=== PATIENT | female | born 1945 | race Caucasian/White ===

== ENCOUNTER 2018-05-23 00:07 | Outpatient (CLI) | payer MEDICARE, SELFPAY ==
--- NOTE | 2018-05-23 13:14 | DI.MAMMO_ITS ---
SYMPTOM/DIAGNOSIS: SCREENING, Z12.31 MAMMOGRAMS: Mammograms were interpreted according to the usual protocol including computer analysis with CAD system, tomosynthesis and C view imaging. Comparison is made with prior examinations. Breast density, Category B. No masses or microcalcifications are seen. There is nothing to suggest malignancy. IMPRESSION: Negative mammogram. Routine screening is recommended. Category 1. MQSA ASSESSMENT OF FINDINGS: Negative. Category 1. Patient will receive a letter notifying them of these results. BI-RADS category B. There are scattered areas of fibroglandular density.
== END 2018-05-23 00:27 ==
PROVIDERS: Visit Provider Family Medicine
DX: Z12.31 Encounter for screening mammogram for malignant neoplasm of breast (principal)
CPT/HCPCS: 77063; 77067

== ENCOUNTER 2018-06-28 02:06 | Outpatient (CLI) | payer MEDICARE, SELFPAY ==
[2018-06-28 11:28] LABS: ALT 30 U/L (12-78); AST 23 U/L (15-37); Albumin 3.9 g/dL (3.4-5.0); Alkaline Phosphatase 69 U/L (46-116); BUN 12 mg/dL (7-18); Bilirubin, Total 0.5 mg/dL (0.2-1.0); CREATININE 0.72 mg/dL (0.55-1.02); Calcium 9.6 mg/dL (8.5-10.1); Chloride 102 mmol/L (98-107); Cholesterol 200 mg/dL (50-200); Glucose 103 mg/dL (70-100); HDL Cholesterol 66 mg/dL (40-60); LDL CHOLESTEROL 116 mg/dL (<100); Potassium 4.5 mmol/L (3.5-5.1); Sodium 140 mmol/L (136-145); Total Protein 6.7 g/dL (6.4-8.2); Triglyceride 50 mg/dL (30-150)
== END 2018-06-28 02:26 ==
DX: E78.5 Hyperlipidemia, unspecified (principal); M19.90 Unspecified osteoarthritis, unspecified site
CPT/HCPCS: 36415; 80053; 80061; 83721

== ENCOUNTER 2020-05-20 10:08 | Outpatient (CLI) | payer MEDICARE, SELFPAY ==
[2020-05-20 12:58] LABS: ALT 42 U/L (14-59); AST 31 U/L (15-37); Albumin 4.5 g/dL (3.4-5.0); Alkaline Phosphatase 74 U/L (46-116); BUN 14 mg/dL (7-18); Bilirubin, Total 0.6 mg/dL (0.2-1.0); CREATININE 0.79 mg/dL (0.55-1.02); Calcium 9.4 mg/dL (8.5-10.1); Calculated LDL 122 mg/dL (<100); Chloride 101 mmol/L (98-107); Cholesterol 205 mg/dL (<200); Glucose 104 mg/dL (74-106); HDL Cholesterol 74 mg/dL (40-60); Potassium 3.9 mmol/L (3.5-5.1); Sodium 139 mmol/L (136-145); TSH (W/Ref FT4) 2.17 uIU/mL (0.36-3.74); Total Protein 7.5 g/dL (6.4-8.2); Triglyceride 48 mg/dL (<150)
== END 2020-05-20 10:28 ==
DX: G47.00 Insomnia, unspecified (principal); L65.9 Nonscarring hair loss, unspecified; E78.5 Hyperlipidemia, unspecified; R03.0 Elevated blood-pressure reading, without diagnosis of hypertension; I10 Essential (primary) hypertension; R68.89 Other general symptoms and signs
CPT/HCPCS: 36415; 80053; 80061; 84443

== ENCOUNTER 2021-05-14 04:22 | Outpatient (CLI) | payer MEDICARE, SELFPAY ==
[2021-05-14 13:03] LABS: ALT 32 U/L (14-59); AST 22 U/L (15-37); Albumin 4.1 g/dL (3.4-5.0); Alkaline Phosphatase 73 U/L (46-116); Anion Gap 3.9 mmol/L (3-11); BUN 17 mg/dL (7-18); Bilirubin, Total 0.4 mg/dL (0.2-1.0); CO2 32.1 mmol/L (21.0-32.0); CREATININE 0.6 mg/dL (0.55-1.02); Calcium 9.7 mg/dL (8.5-10.1); Calculated LDL 107 mg/dL (<100); Chloride 101 mmol/L (98-107); Cholesterol 185 mg/dL (<200); Glucose 107 mg/dL (74-106); HDL Cholesterol 68 mg/dL (40-60); Potassium 5.5 mmol/L (3.5-5.1); Sodium 137 mmol/L (136-145); Total Protein 6.8 g/dL (6.4-8.2); Triglyceride 52 mg/dL (<150)
== END 2021-05-14 04:23 | disposition home or self-care (01) ==
LOC: LOS 04:23
DX: I10 Essential (primary) hypertension (principal); E78.5 Hyperlipidemia, unspecified
CPT/HCPCS: 36415; 80053; 80061

== ENCOUNTER 2021-06-20 02:40 | Outpatient (CLI) | payer MEDICARE, SELFPAY ==
[2021-06-20 12:43] LABS: Source Nasal/Nares
[2021-06-20 15:55] LABS: COVID-19 PCR Negative (Negative)
== END 2021-06-20 02:41 | disposition home or self-care (01) ==
LOC: LBO 02:41
PROVIDERS: Visit Provider Ophthalmology
DX: Z20.822 Contact with and (suspected) exposure to COVID-19 (principal)
CPT/HCPCS: 87635

== ENCOUNTER 2021-06-23 08:39 | Day surgery (SDC) | payer MEDICARE, SELFPAY ==
[2021-06-23 09:10] VITALS: BP 196/83; PULSE 88; RESP 16; TEMP 35.8; O2SAT 100
[2021-06-23] MEDS: Tropicam./Phenyleph. (1/2.5%) 5 ML BTL OS ×3 (09:22→09:37)
--- NOTE | 2021-06-23 09:50 | W.ANESPRE ---
General Info Date of Service Date Performed: 06/23/21 Height: 5 ft Weight: 50.9 kg Body Mass Index (BMI): 21.9 Surgical Procedure: Operation Date: 06/23/21 11:40 Proposed Procedures Side Surgeon p Cataract Extraction with IOL Implant Left Itz Gan MD Meds Allergies and Home Medications Allergies Allergy/AdvReac Type Severity Reaction Status Date / Time Penicillins Allergy Intermediate Skin Rash Verified 06/23/21 09:25 Home Medication Medication Instructions Recorded cholecalciferol (vitamin D3) 25 25 mcg PO DAILY 05/20/20 mcg (1,000 unit) capsule multivitamin 1 tab PO DAILY 05/20/20 turmeric root extract 500 mg 500 mg PO DAILY 05/20/20 capsule scopolamine base 1 mg over 3 days 1 patch TRANSDERMAL Q3D PRN #4 ea 06/03/20 transdermal patch meloxicam 7.5 mg tablet 7.5 mg PO DAILY PRN #90 tab-cap 01/22/21 simvastatin 20 mg tablet 20 mg PO HS #90 tab-cap 01/22/21 Saccharomyces boulardii 250 mg 250 mg PO BID 05/22/21 capsule ascorbate calcium (vitamin C) 500 500 mg PO DAILY 05/22/21 mg tablet lisinopril 5 mg tablet 5 mg PO DAILY #90 tab 05/22/21 melatonin 3 mg tablet 3 mg PO .Qevening PRN #90 tab 05/22/21 sertraline 25 mg tablet 25 mg PO DAILY #90 tab 05/22/21 Current Visit Medications: Current Medications Generic Name Dose Route Start Last Admin Trade Name Freq PRN Reason Stop Dose Admin Acetaminophen 1,000 mg 06/23/21 06:00 Acetaminophen 500 Mg Tab PO Q4H PRN PRN Miscellaneous Medication 0 ml 06/23/21 06:00 Prednisolone 1%, Moxifloxacin 0.5%, Nepafenac 0.1% 5ml Btl OS DIRECTED JUMANA Miscellaneous Medication 0 ml 06/23/21 06:00 06/23/21 09:37 Tropicam./Phenyleph. (1/2.5%) 5 Ml Btl OS 1 drp DIRECTED JUMANA Administration Tetracaine HCl 0 ml 06/23/21 06:00 Tetracaine 0.5% 4 Ml Btl OS DIRECTED JUMANA PFSH Active Problems Active Problems: Problem Status Onset Code Posterior subcapsular age-related cataract of left eye H25.042 Nuclear sclerotic cataract of left eye H25.12 Anxiety F41.9 Insomnia G47.00 Actinic keratosis L57.0 Essential hypertension I10 Thinning hair L65.9 Sensation of both heat and cold R68.89 Family history of GERD Z83.79 Wears hearing aid Z97.4 Seborrheic keratosis 07/29/15 L82.1 Right knee pain 10/22/15 M25.561 Osteopenia M85.80 Osteoarthritis M19.90 Hyperlipidemia E78.5 Stress fracture, left ankle, sequela 06/02/16 M84.372S Medical History Active Problem List Anxiety (Chronic) Insomnia (Acute) Actinic keratosis (Acute) Essential hypertension (Acute) Thinning hair (Acute) Sensation of both heat and cold (Acute) Family history of GERD (Acute) Wears hearing aid (Chronic) 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 MCDUFFIE Left ankle fracture (03/13/16) in [place] Tonsillectomy Tobacco Smoking/Tobacco Use Status: Former Tobacco Use Passive smoking exposure: No Second hand exposure: Yes Alcohol Alcohol Intake: current Alcohol intake frequency: a few times a month Alcohol type: wine Substance Use Substance use: Never Substance use type: does not use Counseling provided: none Vital Signs and Lab Results Vital Signs Most Recent Vital Signs in EMR: Most Recent Vital Signs Temp Pulse Resp BP Pulse Ox 35.8 C L 88 16 196/83 H 100 06/23/21 09:10 06/23/21 09:10 06/23/21 09:10 06/23/21 09:10 06/23/21 09:10 Lab Results Blood Type / Crossmatch: No Data to Display Complete Blood Count: No Data to Display Complete Metabolic Panel: No Data to Display Liver Function Panel: No Data to Display Coagulation Panel: No Data to Display Cardiac Panel: No Data to Display Arterial Blood Gas: No Data to Display Venous Blood Gas: No Data to Display Pancreas Panel: No Data to Display Thyroid Panel: No Data to Display Infectious Disease: Coronavirus (COVID-19)(PCR) Negative (Negative) 06/20/21 09:52 06/20/21 Coronavirus 2019 Source Nasal/Nares 06/20/21 09:52 06/20/21 Blood Cultures: No Data to Display Toxicology Panel: No Data to Display Anesthesia Assessment and Plan Anesthesia History Personal History: No History of Anesthesia Complications Family History: No Family History of Anesthesia Complications Exercise Tolerance Exercise Tolerance: Metabolic Equivalents>4 Pertinent Negatives Pertinent Negatives: No Symptoms of GERD, No Major Cardiovascular Symptoms or Complaints, No Major Pulmonary Symptoms or Complaints and No History of CVA/TIA Cardiac & Pulmonary Exam Cardiac Exam: Normal S1/S2 Heart Sounds Pulmonary Exam: Clear Bilateral Breath Sounds Implantable Cardiac Device Does patient have a Pacemaker or an ICD?: No Airway Exam Known Difficult Airway: No Mallampati Class: 1 Mouth Opening: Normal (> 3cm) Thyromental Distance: Greater than 3 cm Neck Range of Motion: Full ROM Neck Circumference: Normal Teeth Condition: Normal Dentition ASA Classification ASA Score: ASA 2 Emergency Case?: No NPO Status NPO Status: NPO Clears >2 hours, Solids >8 hours Anesthesia Plan Resuscitation Status: Full Code Anesthesia Technique: MAC Anesthesia Airway Planned: Natural Airway Monitors Used: Standard Monitors
[2021-06-23 09:53] VITALS: BMI 21.9
[2021-06-23 10:01] VITALS: BP 184/79; PULSE 77; RESP 16; O2SAT 98
[2021-06-23] MEDS: Tetracaine 0.5% 4 ML BTL OS (10:14)
[2021-06-23] MEDS: Povidone-Iodine Ophth 30 ML BTL (10:15)
[2021-06-23] MEDS: Lidocaine 2% Jelly 6 ML SYR (10:15)
[2021-06-23] MEDS: Duovisc Viscoelastic System EACH 1 EACH (10:25)
[2021-06-23] MEDS: Balanced Salt Soln.-PLUS 500 ML BAG (10:25)
[2021-06-23 10:41] VITALS: BP 156/71; PULSE 73; RESP 16; TEMP 36.3; O2SAT 98
--- NOTE | 2021-06-23 10:41 | W.PM.DSUDISC ---
Discharge Plan Disposition Patient Disposition: HOME Condition: Good Discharge Details Attending Provider: Itz Gan Primary Care Provider: Babs Thomas Home Meds and New Rx's Prescriptions: No Action multivitamin Tablet 1 tab PO DAILY RF: 0 turmeric root extract 500 mg capsule 500 mg PO DAILY RF: 0 cholecalciferol (vitamin D3) 25 mcg (1,000 unit) capsule 25 mcg PO DAILY RF: 0 scopolamine base 1 mg over 3 days patch 3 day 1 patch transdermal Q3D PRN (Reason: nausea and vomiting/motion sickness) Qty: 4 RF: 0 Saccharomyces boulardii [Daily Probiotic (S. boulardii)] 250 mg capsule 250 mg PO BID RF: 0 ascorbate calcium (vitamin C) 500 mg tablet 500 mg PO DAILY RF: 0 lisinopril 5 mg tablet 5 mg PO DAILY Qty: 90 RF: 3 sertraline 25 mg tablet 25 mg PO DAILY Qty: 90 RF: 3 melatonin 3 mg tablet 3 mg PO .Qevening PRN (Reason: sleep) Qty: 90 RF: 0 meloxicam 7.5 mg tablet 7.5 mg PO DAILY PRN (Reason: joint discomfort) Qty: 90 RF: 4 simvastatin 20 mg tablet 20 mg PO HS Qty: 90 RF: 4 Discharge Instructions Stand Alone Forms: Post-op Topical CataractTeresita (DSU) Discharge Orders Discharge Orders: Discharge Order (Routine); Ordered 06/23/21 Ordered By: Itz Gan DS: Diagnosis Discharge Diagnosis (1) Posterior subcapsular age-related cataract of left eye: Status: Resolved (2) Nuclear sclerotic cataract of left eye: Status: Resolved
--- NOTE | 2021-06-23 10:41 | W.PM.OP ---
Date of service: 06/23/21 Time of Service: 10:41 Operative Note Operative Note DATE OF PROCEDURE: 06/23/21 PRE-OP DIAGNOSIS: Nuclear/posterior subcapsular cataract, left eye POST-OP DIAGNOSIS: same PROCEDURE: Cataract extraction using phacoemulsification with intraocular lens implant, left eye SURGEON: Itz Gan ANESTHESIA TYPE: Local By Surgeon and MAC Refer to Anesthesia Record PATHOLOGY: none sent COMPLICATIONS: None Patient was transported to: same day Patient's condition: stable Implants: [employer] / [employer] Tecnis [id number] Indications: Progressive decreased vision due to cataract, left eye Procedure Description: CATARACT SURGERY OPERATIVE REPORT PREOPERATIVE DIAGNOSIS: 1. Nuclear/posterior subcapsular cataract, left eye POSTOPERATIVE DIAGNOSIS: Same OPERATION: 1. Cataract extraction using phacoemulsification with posterior chamber intraocular lens implant, left eye. IOL: IOL Railroad Car Checker/Model: [employer] / ELAINE Tecnis [id number] IOL Power: + 16.5 diopters IOL Serial Number: [id number] Optic Diameter: 6.0 mm Haptic/Overall Diameter: 13.0 mm PHACO INFO: [facility] [employer] Vision System with OZil and Active [employer]uid[employer] Cumulative Dispersed Energy (CDE): 7.96 seconds SURGEON: Itz Gan MD, MIKEY ANESTHESIA: Monitored A [facility] (MAC), with local sub-tenon's anesthetic infiltration COMPLICATIONS: None SPECIMENS: None INDICATIONS FOR PROCEDURE: The patient is a 76-year-old lady with history of diminished visual acuity in her left eye secondary to the development of nuclear and posterior subcapsular cataract. The option of cataract surgery was offered to the patient and she felt she was symptomatic enough that she wished to proceed. PROCEDURE: The correct surgical eye was identified and marked as the left eye and the pupil was dilated in the preoperative area using mydriatics and cycloplegics. The dilated pupil size was 8.0 mm. Oral sedation was administered in the form of an Imprimis MKO Melt (midazolam 3mg/ketamine 25mg/ondansetron 2mg). The patient was brought to the operating room where cardiopulmonary monitoring was instituted and surgical time-out was performed, confirming the correct operative eye and IOL power. Topical anesthesia was administered and ophthalmic povidone-iodine 5% was instilled into the conjunctival fornices. Lidocaine gel was applied to the cornea and the ilttle-ocular area was prepped with Betadine 10% solution and draped in the usual sterile fashion for intraocular surgery, including an aperture drape. A Tegaderm transparent film dressing was cut in half and used to cover the lashes and lid margins. Care was taken to sequester the lashes and lid margins under the Tegaderm dressing. A lid speculum was placed between the lids of the operative eye and the Jose-Kayley operating microscope was maneuvered into position. Frandy scissors were then used to make a conjunctival buttonhole approximately 6mm posterior to the limbus in the inferonasal quadrant. Blunt dissection was carried out to expose bare sclera, and a blunt-tipped sub-tenon?s anesthesia cannula was introduced and passed posteriorly along the globe where non-preserved plain lidocaine was injected into posterior sub-Tenon?s space. A sideport knife was used to make a paracentesis port superiorly/superiortemporally. Intraocular phenylephrine/lidocaine was injected int the anterior chamber.. The anterior chamber was filled with viscoelastic. A 2.4mm keratome knife was used to create a half-thickness groove at the limbus and then to construct a three-plane near-clear corneal tunnel extending 2.0mm into clear cornea at the 3:00 position. A flap was raised on the anterior capsule and capsulorhexis forceps were used to complete a continuous curvilinear capsulorhexis of 5.5 mm. Balanced salt solution was then used to perform cortical cleaving hydrodissection and nuclear hydrodelineation until the lens could be freely rotated within the capsular bag. The lens nucleus was then disassembled and removed within the capsular bag and iris plane using phacoemulsification. Residual cortical material was removed using the 45-degree angled silicone I/A tip with 0.3mm port. The posterior capsule was carefully polished to remove as much residual lens epithelial cells as safely possible. The capsular bag was then inflated and the anterior chamber deepened with viscoelastic. The lens implant described above was inserted into the capsular bag using the ELAINE Circle Injector. A Kuglen hook was used to dial the IOL into position. Residual viscoelastic was then removed first from posterior to the IOL, then from the anterior chamber using the I/A handpiece. The lens implant was noted to center nicely within the capsular bag. The incisions were stromally hydrated, and the anterior chamber was reformed using BSS. Then 0.5cc of moxifloxacin 1.0mg/ml were injected into the capsular bag and anterior chamber. The incisions were checked with a Weck spear and found to be secure. Several drops of ophthalmic povidone-iodine 5% were then applied to the eye followed by two drops of Imprimis combination prednisolone/moxifloxacin/nepafenac solution. The drapes were removed and a clear plastic protective eye shield was placed over the eye. The patient was then returned to Same Day Surgery in stable condition.
--- NOTE | 2021-06-23 10:49 | W.ANESPOSTOP ---
Postoperative Evaluation Date, Time and Location Date Performed: 06/23/21 Time Performed: 10:43 Patient Location: Day Surgery Unit Vital Signs Most Recent Imported Vital Signs: Most Recent Vital Signs Temp Pulse Resp BP Pulse Ox 36.3 C L 73 16 156/71 H 98 06/23/21 10:41 06/23/21 10:41 06/23/21 10:41 06/23/21 10:41 06/23/21 10:41 Pain Score Most Recent Pain Score: Most Recent Pain Score Pain Level 0 06/23/21 10:41 Assessment Mental Status: Awake (Alert & Oriented to Patient Baseline) Airway and Respiratory Function: Patent airway with normal (patient baseline) respiratory exam Cardiovascular Function: Hemodynamically Stable Hydration Status: Adequately Hydrated Nausea & Vomiting: No Nausea or Vomiting Pain: Pt. Denies Any Pain Peripheral Nerve Block: Patient did not receive a nerve block
[2021-06-23 11:10] VITALS: BP 135/75; PULSE 78; RESP 16; TEMP 36.5; O2SAT 95
== END 2021-06-23 11:41 | disposition home or self-care (01) ==
PROVIDERS: Visit Provider Ophthalmology
PROC: (CPT 66984; principal; 2021-06-23 11:30)
DX: H25.042 Posterior subcapsular polar age-related cataract, left eye (principal); I10 Essential (primary) hypertension; E78.5 Hyperlipidemia, unspecified
CPT/HCPCS: 66984; V2632

== ENCOUNTER 2021-07-18 01:51 | Outpatient (CLI) | payer MEDICARE, SELFPAY ==
[2021-07-18 10:25] LABS: Source Nasal/Nares
[2021-07-18 16:48] LABS: COVID-19 PCR Negative (Negative)
== END 2021-07-18 01:52 | disposition home or self-care (01) ==
LOC: LBO 01:51
PROVIDERS: Visit Provider Ophthalmology
DX: Z20.822 Contact with and (suspected) exposure to COVID-19 (principal); Z01.818 Encounter for other preprocedural examination
CPT/HCPCS: 87635

== ENCOUNTER 2021-07-21 07:35 | Day surgery (SDC) | payer MEDICARE, SELFPAY ==
[2021-07-21 07:49] VITALS: BP 161/76; PULSE 73; RESP 16; TEMP 35.5; O2SAT 99
[2021-07-21] MEDS: Tropicam./Phenyleph. (1/2.5%) 5 ML BTL OD ×3 (08:05→08:15)
--- NOTE | 2021-07-21 08:31 | ANES.PREOP_ITS ---
General Info Date of Service Date Performed: 07/21/21 Height: 5 ft Weight: 50.7 kg Body Mass Index (BMI): 21.8 Surgical Procedure: Operation Date: 07/21/21 13:40 Proposed Procedures Side Surgeon p Cataract Extraction with IOL Implant Right Itz Gan MD Meds Allergies and Home Medications Allergies Allergy/AdvReac Type Severity Reaction Status Date / Time Penicillins Allergy Intermediate Skin Rash Verified 07/21/21 07:58 Home Medication Medication Instructions Recorded cholecalciferol (vitamin D3) 25 25 mcg PO DAILY 05/20/20 mcg (1,000 unit) capsule multivitamin 1 tab PO DAILY 05/20/20 turmeric root extract 500 mg 500 mg PO DAILY 05/20/20 capsule scopolamine base 1 mg over 3 days 1 patch TRANSDERMAL Q3D PRN #4 ea 06/03/20 transdermal patch meloxicam 7.5 mg tablet 7.5 mg PO DAILY PRN #90 tab-cap 01/22/21 simvastatin 20 mg tablet 20 mg PO HS #90 tab-cap 01/22/21 Saccharomyces boulardii 250 mg 250 mg PO BID 05/22/21 capsule ascorbate calcium (vitamin C) 500 500 mg PO DAILY 05/22/21 mg tablet lisinopril 5 mg tablet 5 mg PO DAILY #90 tab 05/22/21 melatonin 3 mg tablet 3 mg PO .Qevening PRN #90 tab 05/22/21 sertraline 50 mg tablet 50 mg PO DAILY #90 tab 07/17/21 Current Visit Medications: Current Medications Generic Name Dose Route Start Last Admin Trade Name Freq PRN Reason Stop Dose Admin Acetaminophen 1,000 mg 07/21/21 06:00 Acetaminophen 500 Mg Tab PO Q4H PRN PRN Miscellaneous Medication 0 ml 07/21/21 06:00 Prednisolone 1%, Moxifloxacin 0.5%, Nepafenac 0.1% 5ml Btl OD DIRECTED [facility] Miscellaneous Medication 0 ml 07/21/21 06:00 07/21/21 08:15 Tropicam./Phenyleph. (1/2.5%) 5 Ml Btl OD 1 drp DIRECTED JUMANA Administration Tetracaine HCl 0 ml 07/21/21 06:00 Tetracaine 0.5% 4 Ml Btl OD DIRECTED [facility] PFSH Active Problems Active Problems: Problem Status Onset Code Stress fracture, left ankle, sequela 06/02/16 M84.372S Hyperlipidemia E78.5 Osteoarthritis M19.90 Osteopenia M85.80 Right knee pain 10/22/15 M25.561 Seborrheic keratosis 07/29/15 L82.1 Wears hearing aid Z97.4 Family history of GERD Z83.79 Sensation of both heat and cold R68.89 Thinning hair L65.9 Essential hypertension I10 Actinic keratosis L57.0 Insomnia G47.00 Anxiety F41.9 Nuclear sclerotic cataract of left eye H25.12 Posterior subcapsular age-related cataract of left eye H25.042 Nuclear sclerotic cataract of right eye H25.11 Posterior subcapsular age-related cataract, right eye H25.041 Medical History Medical History Elevated BP without diagnosis of hypertension Surgical History Surgical History (Updated 07/21/21 @ 07:58 by Chrissie Casillas) Colonoscopy - MAC (06/15/11) DR. MCDUFFIE Hx of cataract surgery Left ankle fracture (03/13/16) in [place] Tonsillectomy Tobacco Smoking/Tobacco Use Status: Former Tobacco Use Passive smoking exposure: No Second hand exposure: Yes Alcohol Alcohol Intake: current Alcohol intake frequency: a few times a month Alcohol type: wine Substance Use Substance use: Never Substance use type: does not use Counseling provided: none Vital Signs and Lab Results Vital Signs Most Recent Vital Signs in EMR: Most Recent Vital Signs Temp Pulse Resp BP Pulse Ox 35.5 C L 73 16 161/76 H 99 07/21/21 07:49 07/21/21 07:49 07/21/21 07:49 07/21/21 07:49 07/21/21 07:49 Lab Results Blood Type / Crossmatch: No Data to Display Complete Blood Count: No Data to Display Complete Metabolic Panel: No Data to Display Liver Function Panel: No Data to Display Coagulation Panel: No Data to Display Cardiac Panel: No Data to Display Arterial Blood Gas: No Data to Display Venous Blood Gas: No Data to Display Pancreas Panel: No Data to Display Thyroid Panel: No Data to Display Infectious Disease: Coronavirus (COVID-19)(PCR) Negative (Negative) 07/18/21 08:28 07/18/21 Coronavirus 2019 Source Nasal/Nares 07/18/21 08:28 07/18/21 Blood Cultures: No Data to Display Toxicology Panel: No Data to Display Anesthesia Assessment and Plan Anesthesia History Personal History: No History of Anesthesia Complications Family History: No Family History of Anesthesia Complications Exercise Tolerance Exercise Tolerance: Metabolic Equivalents>4 Pertinent Negatives Pertinent Negatives: No Symptoms of GERD Cardiac & Pulmonary Exam Cardiac Exam: Normal S1/S2 Heart Sounds Pulmonary Exam: Clear Bilateral Breath Sounds Implantable Cardiac Device Does patient have a Pacemaker or an ICD?: No Airway Exam Known Difficult Airway: No Mallampati Class: 1 Mouth Opening: Normal (> 3cm) Thyromental Distance: Greater than 3 cm Neck Range of Motion: Full ROM Neck Circumference: Normal Teeth Condition: Normal Dentition ASA Classification ASA Score: ASA 2 Emergency Case?: No NPO Status NPO Status: NPO Clears >2 hours, Solids >8 hours Anesthesia Plan Resuscitation Status: Full Code Anesthesia Technique: MAC Anesthesia Airway Planned: Natural Airway Monitors Used: Standard Monitors
[2021-07-21 08:38] VITALS: BMI 21.8
--- NOTE | 2021-07-21 08:57 | HPE_ITS ---
Assessment and Plan Assessment and plan (1) Nuclear sclerotic cataract of right eye: Status: Acute Assessment and plan: Assessment: Visually significant cataract, right eye. Plan: Cataract extraction with lens implantation of the right eye (2) Posterior subcapsular age-related cataract, right eye: Status: Acute Assessment and plan: Assessment: Visually significant cataract, right eye. Plan: Cataract extraction with lens implantation of the right ey History of Present Illness History of Present Illness Chief Complaint: Progressive decreased vision right eye Narrative: The patient is a 76-year-old lady with history of progressive decreased vision in both eyes secondary to the development of cataract. She has already undergone cataract surgery in her left eye on 06/23/2021, she is doing well postoperatively with uncorrected visual acuity of 20/20 in the left eye. She now presents for cataract surgery in the right eye. 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 FROY Norris of cataract surgery Left ankle fracture (03/13/16) in [place] Tonsillectomy Family History Mother , AGE 82 Neoplasm Father , AGE 82 Diabetes Dementia Alcohol abuse Sister No problems noted. Sister No problems noted. Maternal Grandfather Heart disease Grandfather No problems noted. Maternal Grandmother Cancer Paternal Grandmother Cancer Son No problems noted. Daughter No problems noted. Other Family history of GERD Social History Smoking/Tobacco Use Status: Former Tobacco Use tobacco type: cigarettes Quit Date: 07/19/69 Second Hand Exposure: Yes Smoking risk assessment performed?: Yes Alcohol Intake: current Alcohol Intake frequency: a few times a month Alcohol type: wine Drug use: Never Substance use type: does not use Counseling provided: none Caregiver/Support person: No Household members: spouse Housing: house Communication Needs: Hard of Hearing and Corrective Lenses Do you need help understanding health information?: Rarely Pets and animals: No Sexually active: Yes Do you think of yourself as: straight/heterosexual Current gender identity: female What is your relationship status?: How often do you talk on the phone with friends or family?: once per week How often do you get together with friends or relatives?: decline to answer How often do you attend voodoo or episcopal services?: decline to answer Do you belong to any clubs or organized social groups?: decline to answer Panel score (0-1 are the most socially isolated patients): 1 What type of physical activity do you participate in: walking Duration: 15-30 minutes/day Frequency: 3-4 times per week Chiara/Holiness: Advent Seatbelt use: always Drive intox or ride w/intox trash collector truck driver: No Do you feel safe at home: Yes Do you feel safe in your relationship?: Yes Victim of physical abuse: No Victim of emotional abuse: No Victim of sexual abuse: No Would you like helpful sources: No Meds Allergies and Home Medications Allergies Allergy/AdvReac Type Severity Reaction Status Date / Time Penicillins Allergy Intermediate Skin Rash Verified 07/21/21 07:58 Home Medications Medication Instructions Recorded Confirmed Type cholecalciferol (vitamin D3) 25 25 mcg PO DAILY 05/20/20 07/21/21 History mcg (1,000 unit) capsule multivitamin 1 tab PO DAILY 05/20/20 07/21/21 History turmeric root extract 500 mg 500 mg PO DAILY 05/20/20 07/21/21 History capsule scopolamine base 1 mg over 3 days 1 patch TRANSDERMAL Q3D PRN #4 ea 06/03/20 07/21/21 Rx transdermal patch meloxicam 7.5 mg tablet 7.5 mg PO DAILY PRN #90 tab-cap 01/22/21 07/21/21 Rx simvastatin 20 mg tablet 20 mg PO HS #90 tab-cap 01/22/21 07/21/21 Rx Saccharomyces boulardii 250 mg 250 mg PO BID 05/22/21 07/21/21 History capsule ascorbate calcium (vitamin C) 500 500 mg PO DAILY 05/22/21 07/21/21 History mg tablet lisinopril 5 mg tablet 5 mg PO DAILY #90 tab 05/22/21 07/21/21 Rx melatonin 3 mg tablet 3 mg PO .Qevening PRN #90 tab 05/22/21 07/21/21 Rx sertraline 50 mg tablet 50 mg PO DAILY #90 tab 07/17/21 07/21/21 Rx Exam Eyes Other: Nuclear/posterior subcapsular cataract right eye PCIOL left eye Resp Auscultation: clear to auscultation bilaterally Cardio Rate: regular rate Rhythm: regular rhythm
[2021-07-21] MEDS: Tetracaine 0.5% 4 ML BTL OD (09:16)
[2021-07-21] MEDS: Duovisc Viscoelastic System EACH 1 EACH (09:17)
[2021-07-21] MEDS: Balanced Salt Soln.-PLUS 500 ML BAG (09:17)
[2021-07-21] MEDS: Lidocaine 2% Jelly 6 ML SYR (09:18)
[2021-07-21] MEDS: Povidone-Iodine Ophth 30 ML BTL (09:19)
[2021-07-21 09:31] VITALS: BP 126/59; PULSE 57; RESP 16; TEMP 36; O2SAT 100
--- NOTE | 2021-07-21 09:31 | W.PM.DSUDISC ---
Discharge Plan Disposition Patient Disposition: HOME Condition: Good Discharge Details Attending Provider: Itz Gan Primary Care Provider: Babs Thomas Home Meds and New Rx's Prescriptions: No Action multivitamin Tablet 1 tab PO DAILY RF: 0 turmeric root extract 500 mg capsule 500 mg PO DAILY RF: 0 cholecalciferol (vitamin D3) 25 mcg (1,000 unit) capsule 25 mcg PO DAILY RF: 0 scopolamine base 1 mg over 3 days patch 3 day 1 patch transdermal Q3D PRN (Reason: nausea and vomiting/motion sickness) Qty: 4 RF: 0 Saccharomyces boulardii [Daily Probiotic (S. boulardii)] 250 mg capsule 250 mg PO BID RF: 0 ascorbate calcium (vitamin C) 500 mg tablet 500 mg PO DAILY RF: 0 lisinopril 5 mg tablet 5 mg PO DAILY Qty: 90 RF: 3 melatonin 3 mg tablet 3 mg PO .Qevening PRN (Reason: sleep) Qty: 90 RF: 0 meloxicam 7.5 mg tablet 7.5 mg PO DAILY PRN (Reason: joint discomfort) Qty: 90 RF: 4 simvastatin 20 mg tablet 20 mg PO HS Qty: 90 RF: 4 sertraline 50 mg tablet 50 mg PO DAILY Qty: 90 RF: 4 Discharge Instructions Stand Alone Forms: Post-op Topical CataractTeresita (DSU) Discharge Orders Discharge Orders: Discharge Order (Routine); Ordered 07/21/21 Ordered By: Itz Gan DS: Diagnosis Discharge Diagnosis (1) Nuclear sclerotic cataract of right eye: Status: Resolved (2) Posterior subcapsular age-related cataract, right eye: Status: Resolved
--- NOTE | 2021-07-21 09:33 | ROE_ITS ---
Date of service: 07/21/21 Time of Service: 09:33 Operative Note Operative Note DATE OF PROCEDURE: 07/21/21 PRE-OP DIAGNOSIS: Nuclear/posterior subcapsular cataract, right eye POST-OP DIAGNOSIS: same PROCEDURE: Cataract extraction using phacoemulsification with intraocular lens implant, right eye SURGEON: Itz Gan ANESTHESIA TYPE: Local By Surgeon and MAC Refer to Anesthesia Record ESTIMATED BLOOD LOSS: 0 PATHOLOGY: none sent COMPLICATIONS: None Patient was transported to: same day Patient's condition: stable Implants: [employer]/ELAINE Tecnis [id number] Indications: Progressive visual loss due to cataract, right eye Procedure Description: CATARACT SURGERY OPERATIVE REPORT PREOPERATIVE DIAGNOSIS: 1. Nuclear/posterior subcapsular cataract, right eye POSTOPERATIVE DIAGNOSIS: Same OPERATION: 1. Cataract extraction using phacoemulsification with posterior chamber intraocular lens implant, right eye. IOL: IOL Compounding And Finishing Supervisor/Model: [employer] / ELAINE Tecnis [id number] IOL Power: + 17.5 diopters IOL Serial Number: [id number] Optic Diameter: 6.0mm Haptic/Overall Diameter: 13.0mm PHACO INFO: Kaden Trelligenceurion Vision System with OZil and Active Fluidics Cumulative Dispersed Energy (CDE): 9.7 seconds SURGEON: Itz Gan MD, MIKEY ANESTHESIA: Monitored Anesthesia Care (MAC), with local sub-tenon's anesthetic infiltration COMPLICATIONS: None SPECIMENS: None INDICATIONS FOR PROCEDURE: The patient is a 76-year-old lady with history of diminished visual acuity in her right eyes secondary to the development of nuclear and posterior subcapsular cataract. She has already undergone cataract surgery in the left eye and is do ing well postoperatively. She now presents for cataract surgery in the right eye. PROCEDURE: The correct surgical eye was identified and marked as the right eye and the pupil was dilated in the preoperative area using mydriatics and cycloplegics. The dilated pupil size was 7.0 mm. Oral sedation was administered in the form of an Imprimis MKO Melt (midazolam 3mg/ketamine 25mg/ondansetron 2mg). The patient was brought to the operating room where cardiopulmonary monitoring was instituted and surgical time-out was performed, confirming the correct operative eye and IOL power. Topical anesthesia was administered and ophthalmic povidone-iodine 5% was instilled into the conjunctival fornices. Lidocaine gel was applied to the cornea and the little-ocular area was prepped with Betadine 10% solution and draped in the usual sterile fashion for intraocular surgery, including an aperture drape. A Tegaderm transparent film dressing was cut in half and used to cover the lashes and lid margins. Care was taken to sequester the lashes and lid margins under the Tegaderm dressing. A lid speculum was placed between the lids of the operative eye and the Jose-Kayley operating microscope was maneuvered into position. Frandy scissors were then used to make a conjunctival buttonhole approximately 6mm posterior to the limbus in the inferonasal quadrant. Blunt dissection was carried out to expose bare sclera, and a blunt-tipped sub-tenon?s anesthesia cannula was introduced and passed posteriorly along the globe where non- preserved plain lidocaine was injected into posterior sub-Tenon?s space. A sideport knife was used to make a paracentesis port inferotemporally. Intraocular phenylephrine/lidocaine was injected into the anterior chamber. The anterior chamber was filled with viscoelastic. A 2.4mm keratome knife was used to create a half-thickness groove at the limbus and then to construct a three- plane near-clear corneal tunnel extending 2.0mm into clear cornea superiortemporally. A flap was raised on the anterior capsule and capsulorhexis forceps were used to complete a continuous curvilinear capsulorhexis of 5.0 mm. Balanced salt solution was then used to perform cortical cleaving hydrodissection and nuclear hydrodelineation until the lens could be freely rotated within the capsular bag. The lens nucleus was then disassembled and removed within the capsular bag and iris plane using phacoemulsification. Residual cortical material was removed using the I/A handpiece. The posterior capsule was carefully polished to remove as much residual lens epithelial cells as safely possible. The capsular bag was then inflated and the anterior chamber deepened with viscoelastic. The lens implant described above was inserted into the capsular bag using the ELAINE [place] Injector. A Kuglen hook was used to dial the IOL into position. Residual viscoelastic was then removed first from posterior to the IOL, then from the anterior chamber using the I/A handpiece. The lens implant was noted to center nicely within the capsular bag. The incisions were stromally hydrated, and the anterior chamber was reformed using BSS. Then 0.5cc of moxifloxacin 1.0mg/ml were injected into the capsular bag and anterior chamber. The incisions were checked with a Weck spear and found to be secure. Several drops of ophthalmic povidone-iodine 5% were then applied to the eye followed by two drops of Imprimis combination prednisolone/moxifloxacin/nepafenac solution. The drapes were removed and a clear plastic protective eye shield was placed over the eye. The patient was then returned to [facility] Day Surgery in stable condition.
--- NOTE | 2021-07-21 09:45 | W.ANESPOSTOP ---
Postoperative Evaluation Date, Time and Location Date Performed: 07/21/21 Time Performed: 09:35 Patient Location: Day Surgery Unit Vital Signs Most Recent Imported Vital Signs: Most Recent Vital Signs Temp Pulse Resp BP Pulse Ox 36.0 C L 57 L 16 126/59 L 100 07/21/21 09:31 07/21/21 09:31 07/21/21 09:31 07/21/21 09:31 07/21/21 09:31 Pain Score Most Recent Pain Score: Most Recent Pain Score Pain Level 0 07/21/21 09:31 Assessment Mental Status: Awake (Alert & Oriented to Patient Baseline) Airway and Respiratory Function: Patent airway with normal (patient baseline) respiratory exam Cardiovascular Function: Hemodynamically Stable Hydration Status: Adequately Hydrated Nausea & Vomiting: No Nausea or Vomiting Pain: Pt. Denies Any Pain Peripheral Nerve Block: Patient did not receive a nerve block
[2021-07-21 10:00] VITALS: BP 134/47; PULSE 62; RESP 16; TEMP 36.1; O2SAT 62
== END 2021-07-21 10:15 | disposition home or self-care (01) ==
PROVIDERS: Visit Provider Ophthalmology
PROC: (CPT 66984; principal; 2021-07-21 13:30)
DX: H25.041 Posterior subcapsular polar age-related cataract, right eye (principal); I10 Essential (primary) hypertension; E78.5 Hyperlipidemia, unspecified
CPT/HCPCS: 66984; V2632

== ENCOUNTER 2022-06-18 03:42 | Outpatient (CLI) | payer MEDICARE, SELFPAY ==
[2022-06-18 13:18] LABS: ALT 25 U/L (14-59); AST 20 U/L (15-37); Albumin 3.7 g/dL (3.4-5.0); Alkaline Phosphatase 82 U/L (46-116); Anion Gap 5.6 mmol/L (3-11); BUN 19 mg/dL (7-18); Bilirubin, Total 0.4 mg/dL (0.2-1.0); CO2 29.4 mmol/L (21.0-32.0); CREATININE 0.7 mg/dL (0.55-1.02); Calculated LDL 177 mg/dL (<100); Chloride 102 mmol/L (98-107); Cholesterol 250 mg/dL (<200); Estimated GFR 90.14 (mL/min/1.73m2); Glucose 123 mg/dL (74-106); HDL Cholesterol 53 mg/dL (40-60); Potassium 4.7 mmol/L (3.5-5.1); Sodium 137 mmol/L (136-145); Total Protein 6.9 g/dL (6.4-8.2); Triglyceride 104 mg/dL (<150)
== END 2022-06-18 03:43 | disposition home or self-care (01) ==
LOC: LOS 03:44
PROVIDERS: PCP Nurse Practitioner Family
DX: I10 Essential (primary) hypertension (principal); E78.5 Hyperlipidemia, unspecified
CPT/HCPCS: 36415; 80053; 80061

== ENCOUNTER 2022-06-24 18:23 | Outpatient (REF) | payer MEDICARE, SELFPAY ==
[2022-06-25 16:14] LABS: Helicobacter pylori Ag, Feces Negative (Negative)
== END 2022-06-24 18:24 | disposition home or self-care (01) ==
LOC: LBN 18:23
PROVIDERS: PCP Nurse Practitioner Family; Visit Provider Nurse Practitioner Family
DX: A04.8 Other specified bacterial intestinal infections (principal)
CPT/HCPCS: 87338

== ENCOUNTER 2023-04-29 13:54 | Outpatient (REF) | payer MEDICARE, SELFPAY ==
[2023-05-04 15:32] LABS: Helicobacter pylori Ag, Feces Negative (Negative)
== END 2023-04-29 13:55 | disposition home or self-care (01) ==
LOC: LBN 13:54
PROVIDERS: PCP Nurse Practitioner Family; Visit Provider Nurse Practitioner Family
DX: R13.10 Dysphagia, unspecified (principal)
CPT/HCPCS: 87338

== ENCOUNTER 2023-06-15 03:37 | Outpatient (CLI) | payer MEDICARE, SELFPAY ==
[2023-06-15 12:09] LABS: HCT 37.8 % (36.0-46.0); HGB 12.4 g/dL (11.2-15.7); MCH 29.3 pg (27.0-33.0); MCHC 32.8 % (32.0-36.0); MCV 89 fL (80-95); MPV 10.5 fL (8.0-11.0); Platelet Count 315 10^3/uL (130-400); RBC 4.23 10^6/uL (3.93-5.22); RDW 14.5 % (11.7-14.6); RDW-SD 47.2 fL; WBC 6.53 10^3/uL (4.4-10.8)
[2023-06-15 12:21] LABS: Anion Gap 6.3 mmol/L (3-11); BUN 17 mg/dL (7-18); CO2 30.7 mmol/L (21.0-32.0); CREATININE 0.8 mg/dL (0.55-1.02); Calcium 9.4 mg/dL (8.5-10.1); Calculated LDL 87 mg/dL (<100); Chloride 103 mmol/L (98-107); Cholesterol 160 mg/dL (<200); Estimated GFR 76.31 (mL/min/1.73m2); Glucose 93 mg/dL (74-106); HDL Cholesterol 60 mg/dL (40-60); Potassium 4.1 mmol/L (3.5-5.1); Sodium 140 mmol/L (136-145); Triglyceride 66 mg/dL (<150)
[2023-06-15 12:43] LABS: Vitamin D 25 Total 78.3 ng/mL (30-100)
[2023-06-16 11:49] LABS: Hepatitis C Ab w Rflx HCV PCR Negative (Negative)
== END 2023-06-15 03:38 | disposition home or self-care (01) ==
PROVIDERS: PCP Nurse Practitioner Family; Visit Provider Nurse Practitioner Family
DX: I10 Essential (primary) hypertension (principal); Z00.00 Encounter for general adult medical examination without abnormal findings; M81.0 Age-related osteoporosis without current pathological fracture
CPT/HCPCS: 36415; 80048; 80061; 82306; 85027; 86803

== ENCOUNTER 2024-05-16 03:23 | Outpatient (CLI) | payer MEDICARE, SELFPAY ==
[2024-05-16 12:30] LABS: ALT 31 U/L (14-59); AST 22 U/L (15-37); Albumin 3.8 g/dL (3.4-5.0); Alkaline Phosphatase 91 U/L (46-116); Anion Gap 8.4 mmol/L (3-11); BUN 23 mg/dL (7-18); Bilirubin, Total 0.55 mg/dL (0.2-1.0); CO2 31.6 mmol/L (21.0-32.0); CREATININE 0.8 mg/dL (0.55-1.02); Calcium 9.4 mg/dL (8.5-10.1); Calculated LDL 105 mg/dL (<100); Chloride 105 mmol/L (98-107); Cholesterol 188 mg/dL (<200); Estimated GFR 75.84 (mL/min/1.73m2); Glucose 104 mg/dL (74-106); HDL Cholesterol 67 mg/dL (40-60); Potassium 3.8 mmol/L (3.5-5.1); Sodium 145 mmol/L (136-145); Total Protein 7.5 g/dL (6.4-8.2); Triglyceride 84 mg/dL (<150)
== END 2024-05-16 03:24 | disposition home or self-care (01) ==
PROVIDERS: PCP Nurse Practitioner Family; Visit Provider Family Medicine
DX: I10 Essential (primary) hypertension (principal); J30.9 Allergic rhinitis, unspecified; H90.3 Sensorineural hearing loss, bilateral; E78.5 Hyperlipidemia, unspecified
CPT/HCPCS: 36415; 80053; 80061

== ENCOUNTER 2024-11-23 10:07 | Outpatient (CLI) | payer MEDICARE, SELFPAY ==
--- NOTE | 2024-11-23 09:45 | DI.RAD_ITS ---
Exam(s) XR LUMBAR SPINE COMPLETE EXAM: XR LUMBAR SPINE COMPLETE CLINICAL HISTORY: back pain, with bilateral leg radiation M54.9 Dorsalgia. TECHNIQUE: 2D digital imaging was performed. COMPARISON: No exams were available for comparison FINDINGS: Five views There is indentation of the superior endplate of L3, age indeterminate. Mild disc space narrowing no sharath at this level. There appears to be partial sacralization of the L5 segment. Mild disc space radha rowing at L4-5 and mild degenerative anterolisthesis of L4 upon L5 noted. Some facet arthropathy is noted at most levels in the lumbosacral spine. The sacroiliac joints appear unremarkable. There is no scoliosis. No osseous lesions. IMPRESSION: Slight indentation of the superior endplate of L3, age indeterminate. Other findings as above. DATA REPOSITORY: RADIATION DOSE DELIVERED:
--- NOTE | 2024-11-23 11:24 | DI.RAD_ITS ---
Exam(s) XR SACRUM COCCYX EXAM: XR SACRUM COCCYX CLINICAL HISTORY: lower back pain with bilateral radiculopathy M54.50. TECHNIQUE: 2D digital imaging was performed. COMPARISON: No exams were available for comparison FINDINGS: 3 views There is no evidence of obvious sacral fracture nor obvious osseous lesion in the sacrum. The sacroi liac joints appear unremarkable. Incidentally noted is sacralization of the L5 segment and there is mild anterolisthesis of L4 upon L5 noted. IMPRESSION: No obvious sacral fracture. Findings as above. DATA REPOSITORY: RADIATION DOSE DELIVERED:
== END 2024-11-23 10:27 ==
LOC: DI 10:08
PROVIDERS: PCP Nurse Practitioner Family; Visit Provider Physician Assistant
DX: M54.9 Dorsalgia, unspecified (principal); M54.50 Low back pain, unspecified
CPT/HCPCS: 72110; 72220

== ENCOUNTER 2025-05-21 03:53 | Outpatient (CLI) | payer MEDICARE, SELFPAY ==
[2025-05-21 15:27] LABS: Anion Gap 7.8 mmol/L (3-11); BUN 19 mg/dL (7-18); CO2 31.2 mmol/L (21.0-32.0); Calcium 9.2 mg/dL (8.5-10.1); Chloride 102 mmol/L (98-107); Cholesterol 219 mg/dL (<200); Glucose 118 mg/dL (74-106); HDL Cholesterol 74 mg/dL (>or=50); Potassium 3.9 mmol/L (3.5-5.1); Sodium 141 mmol/L (136-145)
== END 2025-05-21 03:54 | disposition home or self-care (01) ==
LOC: LOS 03:53
PROVIDERS: PCP Nurse Practitioner Family; Visit Provider Nurse Practitioner Family
DX: I10 Essential (primary) hypertension (principal)
CPT/HCPCS: 36415; 80048; 80061

== ENCOUNTER 2025-05-24 11:49 | Outpatient (CLI) | payer MEDICARE, SELFPAY ==
[2025-05-24 16:31] LABS: Hemoglobin A1C 5.8 % (<5.7)
== END 2025-05-24 11:50 | disposition home or self-care (01) ==
LOC: LOS 11:50
PROVIDERS: PCP Nurse Practitioner Family; Visit Provider Nurse Practitioner Family
DX: R73.01 Impaired fasting glucose (principal)
CPT/HCPCS: 36415; 83036

== ENCOUNTER 2025-06-06 15:23 | Outpatient (REF) | payer MEDICARE, SELFPAY | END 2025-06-06 15:24 | disposition home or self-care (01) | LOC: LBN 15:23 | PROVIDERS: PCP Nurse Practitioner Family; Visit Provider Physician Assistant | DX: R30.0 Dysuria (principal) | CPT/HCPCS: 87077; 87086; 87186 ==